=== PATIENT | female | born 1950 | race Two or more races ===

== ENCOUNTER 2019-03-16 00:39 | Emergency (ER) | payer OTHER ==
[~2019-03-16] VITALS: Ht 157.5 cm; Wt 81.6 kg
[2019-03-16 00:45] VITALS: BP 208/107
[2019-03-16] MEDS ORDERED: cloNIDine HCL 0.1 MG TAB ONE (00:55)
[2019-03-16] MEDS ORDERED: cloNIDine HCL 0.1 MG TAB PO ONE (01:15)
[2019-03-16 02:56] LABS: Urine WBC None Seen /hpf (0 - 5)
[2019-03-16 03:04] LABS: Basophils # (auto) 0.2 uL; Eosinophils # (auto) 0.3 uL; Eosinophils % (auto) 3.5 % (0.0-7.0); Hematocrit 41.9 % (36.0-46.0); Lymphocytes # (auto) 2.8 uL; Lymphocytes % (auto) 31.8 % (10.0-50.0); Mean Corpuscular Hemoglobin 30.6 pg (28.0-32.0); Mean Corpuscular Hgb Conc. 33.4 g/dL (32.0-36.0); Mean Corpuscular Volume 91.4 fL (80.0-100.0); Monocytes # (auto) 0.5 uL; Monocytes % (auto) 6.1 % (0.0-12.0); Neutrophils # (auto) 4.9 uL; Neutrophils % (auto) 56.6 % (37.0-80.0); Platelet Count (auto) 350 10^3/uL (140-450); Red Blood Cells 4.58 10^6/uL (4.0-5.20); Red Cell Distribution Width 13.5 % (11.8-14.3); White Blood Cell 8.7 10^3/uL (4.4-10.8)
[2019-03-16 03:07] LABS: Urine Bacteria NONE SEEN /hpf (None Seen); Urine Blood Negative /uL (Negative); Urine Specific Gravity 1.003 (1.001-1.035)
[2019-03-16 03:21] LABS: Albumin 3.2 g/dL (3.4-5.0); Anion Gap 8 (5-15); Blood Urea Nitrogen 12 mg/dL (7-18); Calcium 8.7 mg/dL (8.5-10.1); Carbon Dioxide 24 mmol/L (21-32); Chloride 107 mmol/L (98-107); Glucose 107 mg/dL (74-106); Potassium 3.6 mmol/L (3.5-5.1); Sodium 139 mmol/L (136-145)
[2019-03-16 03:23] LABS: BUN/Creatinine Ratio 14.6; GFR African American 89 mL/min; GFR Non-African American 73 mL/min
[2019-03-16 03:28] LABS: Alanine Aminotransferase 22 U/L (13-56); Alkaline Phosphatase 150 U/L (45-117); Aspartate Aminotransferase 16 U/L (15-37); Bilirubin, Total 0.2 mg/dL (0.2-1.0); Total Protein 6.6 g/dL (6.4-8.2)
== END 2019-03-16 04:00 | disposition left against medical advice (07) ==
LOC: ER 00:43
DX: I10 Essential (primary) hypertension (principal); R51 Headache; Z53.21 Procedure and treatment not carried out due to patient leaving prior to being seen by health care provider
CPT/HCPCS: 36415; 70450; 80053; 81001; 84484; 85025; 93005

== ENCOUNTER 2022-10-12 16:58 | Inpatient (IN) | payer OTHER ==
[~2022-10-12] VITALS: Ht 157.5 cm; Wt 72.0 kg
[2022-10-12 18:33] LABS: Basophils # (auto) 0 10 ^3/uL (0-0.2); Basophils % (auto) 0.4 % (0.0-2.0); Eosinophils # (auto) 0.2 10 ^3/uL (0-0.8); Eosinophils % (auto) 2.3 % (0.0-7.0); Hematocrit 42.8 % (36.0-46.0); Hemoglobin 14.2 g/dL (12.2-16.2); Lymphocytes # (auto) 1.9 10 ^3/uL (0.4-5.4); Lymphocytes % (auto) 29.7 % (10.0-50.0); Mean Corpuscular Hemoglobin 30.5 pg (28.0-32.0); Mean Corpuscular Hgb Conc. 33.2 g/dL (32.0-36.0); Monocytes # (auto) 0.4 10 ^3/uL (0-1.3); Monocytes % (auto) 5.4 % (0.0-12.0); Neutrophils % (auto) 62.2 % (37.0-80.0); Nucleated Red Blood Cells % 0.2 %; Red Blood Cells 4.65 10^6/uL (4.0-5.20); Red Cell Distribution Width 13.4 % (11.8-14.3); White Blood Cell 6.5 10^3/uL (4.4-10.8)
[2022-10-12 18:51] LABS: Albumin 3.8 g/dL (3.4-5.0); BUN/Creatinine Ratio 13.8; Calcium 9.3 mg/dL (8.5-10.1); Magnesium 1.8 mg/dL (1.6-2.6); Potassium 3.7 mmol/L (3.5-5.1)
[2022-10-12 18:54] LABS: Bilirubin, Total 0.2 mg/dL (0.2-1.0); Total Protein 6.6 g/dL (6.4-8.2)
[2022-10-12] MEDS ORDERED: ASPirin 325 MG TAB PO ONE (19:30)
[2022-10-12] MEDS ORDERED: hydrALAZINE HCL 20 MG/ML VL IV ONE (19:30)
[2022-10-12] MEDS ORDERED: NIFEdipine ER 30 MG TAB PO ONE (19:45)
[2022-10-12] MEDS ORDERED: MORPHINE SULFATE INJ 2 MG/ml SYRG IV ONE ×2 (20:15→21:00)
[2022-10-12] MEDS ORDERED: LABETALOL HCL 5 MG/ML 4ML SYRINGE IV ONE (20:45)
[2022-10-13] VITALS (7 sets, daily range): BP systolic 147–186; BP diastolic 67–93
[2022-10-13] MEDS ORDERED: ONDANSETRON HCL 4 MG/2 ML VIAL IV ONE (00:30)
[2022-10-13] MEDS ORDERED: NITROGLYCERIN 0.4 MG SL TAB SL ONE (00:30)
[2022-10-13] MEDS ORDERED: MORPHINE SULFATE INJ 2 MG/ml SYRG IV PRN ×2 (00:45)
[2022-10-13] MEDS ORDERED: ENOXAPARIN SOD 40 MG/0.4 ML SYRINGE SC SCH (00:45)
[2022-10-13] MEDS: SODIUM CHLORIDE 0.9% 1,000 ML IV SCH ×3 (01:20→22:25)
[2022-10-13] MEDS: ENOXAPARIN SOD 100 MG/1 ML SYRINGE SC SCH ×2 (02:47→15:19)
[2022-10-13 05:25] LABS: Cholesterol 216 mg/dL (< 200); HDL Cholesterol 40 mg/dL (40-59); LDL Cholesterol 166 mg/dL (< 100); Triglycerides 174 mg/dL (< 150)
[2022-10-13] MEDS ORDERED: ACETAMINOPHEN 325 MG TAB PO PRN ×2 (06:45→16:15)
[2022-10-13] MEDS: NITROGLYCERIN 0.4 MG SL TAB SL PRN ×5 (08:32→18:08)
[2022-10-13] MEDS: ONDANSETRON HCL 4 MG/2 ML VIAL IV PRN ×3 (09:12→22:10)
[2022-10-13 09:44] LABS: INR 1.06 (0.9-1.15)
[2022-10-13] MEDS ORDERED: METOPROLOL TARTRATE 25 MG TAB PO SCH (10:00)
[2022-10-13] MEDS ORDERED: ENOXAPARIN SOD 100 MG/1 ML SYRINGE SC SCH (10:00)
[2022-10-13] MEDS: ASPirin-EC 81 mg tab PO SCH (10:42)
[2022-10-13] MEDS: hydrALAZINE HCL 20 MG/ML VL IV PRN ×2 (16:55→22:21)
[2022-10-13] MEDS: HYDROcodone-ACET 10/325MG TAB PO PRN (17:50)
[2022-10-13] MEDS ORDERED: MET50T PO (18:26)
[2022-10-13] MEDS ORDERED: TOPI25TA84 PO (18:26)
[2022-10-13] MEDS ORDERED: LISI-275 PO (18:26)
[2022-10-13] MEDS ORDERED: PRAV20TA3 PO (18:26)
[2022-10-13] MEDS ORDERED: HYDR-4798 PO (18:26)
[2022-10-13] MEDS ORDERED: SPIR25TA8 PO (18:26)
[2022-10-13] MEDS ORDERED: NITROGLYCERIN 50MG/250ML 250 ML IV SCH (18:45)
[2022-10-13] MEDS ORDERED: ANGIOMAX 250 MG VIAL IV ONE (19:35)
[2022-10-13] MEDS ORDERED: VERAPAMIL 2.5MG/ML INJ 2ML VIAL IV ONE (19:35)
[2022-10-13] MEDS ORDERED: HEPARIN SODIUM (PORCINE) 5000 UNITS/ML 1ML VIAL ONE (19:35)
[2022-10-13] MEDS ORDERED: fentaNYL CITRATE 100 MCG/2 ML VL ONE (19:35)
[2022-10-13] MEDS ORDERED: MIDAZOLAM HCL 2MG/2ML 2ml VIAL (1mg/ml) ONE (19:36)
[2022-10-13] MEDS ORDERED: LIDOCAINE 2%HCL (LOCAL ANESTH.) INJ 20ML MDV ONE (19:36)
[2022-10-13] MEDS ORDERED: IOHEXOL 350 MG/ML 100ML IJ ONE (19:36)
[2022-10-13] MEDS ORDERED: SODIUM CHL 0.9% 50 ML ONE (19:36)
[2022-10-13] MEDS ORDERED: diphenhdrAMINE HCL 50 MG/1 ML VL ONE (20:50)
[2022-10-13] MEDS ORDERED: ATROPINE SULF 1 MG/10ml SYR ONE (20:54)
[2022-10-13] MEDS ORDERED: CLOPIDOGREL 300 MG TAB ONE (21:02)
[2022-10-13] MEDS ORDERED: LABETALOL HCL 5 MG/ML ML 20ML VIAL IV ONE (21:16)
[2022-10-13] MEDS ORDERED: ATORVASTATIN 20 MG TAB PO SCH (22:00)
[2022-10-13] MEDS: METOPROLOL TARTRATE 25 MG TAB PO SCH (22:25)
[2022-10-14 04:49] VITALS: BP 135/60
[2022-10-14] MEDS: HYDROcodone-ACET 10/325MG TAB PO PRN (05:29)
[2022-10-14] MEDS: METOPROLOL TARTRATE 25 MG TAB PO SCH ×2 (05:30→14:03)
[2022-10-14 06:12] LABS: Basophils # (auto) 0.1 10 ^3/uL (0-0.2); Basophils % (auto) 0.5 % (0.0-2.0); Eosinophils # (auto) 0 10 ^3/uL (0-0.8); Hematocrit 37.6 % (36.0-46.0); Hemoglobin 12.7 g/dL (12.2-16.2); Lymphocytes # (auto) 1.1 10 ^3/uL (0.4-5.4); Mean Corpuscular Hemoglobin 30.9 pg (28.0-32.0); Mean Corpuscular Hgb Conc. 33.8 g/dL (32.0-36.0); Mean Corpuscular Volume 91.4 fL (80.0-100.0); Monocytes # (auto) 0.6 10 ^3/uL (0-1.3); Monocytes % (auto) 6.5 % (0.0-12.0); Red Blood Cells 4.11 10^6/uL (4.0-5.20); Red Cell Distribution Width 13.7 % (11.8-14.3); White Blood Cell 9.8 10^3/uL (4.4-10.8)
[2022-10-14 06:15] LABS: BUN/Creatinine Ratio 18.6; Calcium 8.8 mg/dL (8.5-10.1); Potassium 3.6 mmol/L (3.5-5.1)
[2022-10-14 06:18] LABS: INR 1.04 (0.9-1.15); Partial Thromboplastin Time 31.5 sec (24.6-33.4)
[2022-10-14] MEDS: SODIUM CHLORIDE 0.9% 1,000 ML IV SCH (06:43)
[2022-10-14] MEDS ORDERED: ASPI-543 PO (07:08)
[2022-10-14] MEDS ORDERED: ATOR20TA50 PO (07:08)
[2022-10-14] MEDS ORDERED: CLOP75TA70 PO (07:08)
[2022-10-14 09:00] VITALS: BP 143/63
[2022-10-14] MEDS: ASPirin-EC 81 mg tab PO SCH (09:45)
[2022-10-14] MEDS ORDERED: CLOPIDOGREL BISULFATE 75 MG TAB PO SCH (10:00)
[2022-10-14 12:51] VITALS: BP 154/72
[2022-10-14 14:11] VITALS: BP 154/72
[2022-10-14] MEDS: ONDANSETRON HCL 4 MG/2 ML VIAL IV PRN (15:20)
== END 2022-10-14 15:30 | disposition home health service (06) | DRG 246 ==
LOC: ER 16:58 → EDBD 16:58 → TELE 10-13 00:43 → TELE-CENTR 10-13 09:28 → OBSVTOIN 10-14 10:05
PROVIDERS: ADMIT Hospitalist; ATTEND Hospitalist
PROC: 027034Z Dilation of Coronary Artery, One Artery with Drug-eluting Intraluminal Device, Percutaneous Approach (ICD-10-PCS; principal; 2022-10-13)
PROC: 02C03ZZ Extirpation of Matter from Coronary Artery, One Artery, Percutaneous Approach (ICD-10-PCS; 2022-10-13)
PROC: 4A023N7 Measurement of Cardiac Sampling and Pressure, Left Heart, Percutaneous Approach (ICD-10-PCS; 2022-10-13)
PROC: B211YZZ Fluoroscopy of Multiple Coronary Arteries using Other Contrast (ICD-10-PCS; 2022-10-13)
PROC: B215YZZ Fluoroscopy of Left Heart using Other Contrast (ICD-10-PCS; 2022-10-13)
PROC: B240ZZ3 Ultrasonography of Single Coronary Artery, Intravascular (ICD-10-PCS; 2022-10-13)
PROC: 03HY32Z Insertion of Monitoring Device into Upper Artery, Percutaneous Approach (ICD-10-PCS; 2022-10-13)
DX: I21.4 Non-ST elevation (NSTEMI) myocardial infarction (principal); I50.31 Acute diastolic (congestive) heart failure; I16.1 Hypertensive emergency; C44.90 Unspecified malignant neoplasm of skin, unspecified; I20.0 Unstable angina; E78.5 Hyperlipidemia, unspecified; I12.9 Hypertensive chronic kidney disease with stage 1 through stage 4 chronic kidney disease, or unspecified chronic kidney disease; Z20.822 Contact with and (suspected) exposure to COVID-19; M10.9 Gout, unspecified; N18.9 Chronic kidney disease, unspecified; Z79.02 Long term (current) use of antithrombotics/antiplatelets; Z79.82 Long term (current) use of aspirin; Z79.899 Other long term (current) drug therapy; Z85.828 Personal history of other malignant neoplasm of skin
CPT/HCPCS: 36415; 71045; 80048; 80053; 80061; 83735; 83880; 84484; 85025; 85610; 85730; 87426; 92933; 92978; 93005; 93306; 93458; 96374; 96375; 96376; 99152; 99153; 99291; C1874; G0378; J2250; J2405; J3490